=== PATIENT | male | born 2000 | race Caucasian/White ===

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

== ENCOUNTER 2021-06-26 09:49 | Emergency (ER) | payer OTHER | END 2021-06-26 12:21 | disposition home or self-care (01) | LOC: ED 09:49 | DX: R07.9 Chest pain, unspecified (principal); R42 Dizziness and giddiness; R00.2 Palpitations ==

== ENCOUNTER → 2021-08-17 | Outpatient (CLI) | payer OTHER ==
[2021-08-17 08:27] LABS: BASO % 0.5 % (0.0-1.0); EOS # 0.2 10*3/uL (0.0-0.4); HEMATOCRIT 45.8 % (42.0-52.0); LYMPH # 2.1 10*3/uL (1.3-4.4); LYMPH % 31.2 % (27.0-41.0); MEAN CELL VOLUME 84.7 fl (80.0-94.0); MEAN CORPUSCULAR HGB 28.1 pg (27.0-31.0); MEAN CORPUSCULAR HGB CONC 33.2 g/dl (33.0-37.0); MEAN PLATELET VOLUME 10.6 fl (9.6-12.3); MONO # 0.6 10*3/uL (0.1-1.0); MONO % 8.9 % (3.0-9.0); NEUT # 3.7 10*3/uL (2.3-7.9); NEUT % 56.2 % (47.0-73.0); PLATELET COUNT AUTOMATED 204 10*3/uL (130-400); RED BLOOD COUNT 5.41 10*6/uL (4.50-5.90); WHITE BLOOD COUNT 6.6 10*3/uL (4.8-10.8)
[2021-08-17 08:50] LABS: ALKALINE PHOSPHATASE 99 U/L (45-117); BUN 20 mg/dl (7-24); CHLORIDE 106 mmol/L (98-107); CHOLESTEROL 130 mg/dL (<200); CREATININE 0.83 mg/dL (0.70-1.30); LDL CHOLESTEROL 77 mg/dL (9-159); POTASSIUM 3.8 mmol/L (3.5-5.1); SGOT/AST 18 IU/L (3-35); SGPT/ALT 37 U/L (12-78); SODIUM 139 mmol/L (136-145); T3 UPTAKE 32 % (31-39); THYROXINE (T4) TOTAL 8.8 ug/dl (4.5-12.1); TRIGLYCERIDES 62 mg/dl (<150)
== END | disposition home or self-care (01) ==
LOC: LAB 08:07
PROVIDERS: ATTEND Pediatrics
DX: D64.9 Anemia, unspecified (principal); R53.83 Other fatigue; T78.40XA Allergy, unspecified, initial encounter; E56.9 Vitamin deficiency, unspecified; X58.XXXA Exposure to other specified factors, initial encounter

== ENCOUNTER → 2021-12-29 | Outpatient (CLI) | payer OTHER | END | disposition home or self-care (01) | LOC: RAD 14:48 | PROVIDERS: ATTEND Pediatrics | DX: M54.50 Low back pain, unspecified (principal) ==

== ENCOUNTER 2022-01-08 17:05 | Emergency (ER) | payer OTHER ==
[~2022-01-08] VITALS: Ht 172.7 cm; Wt 99.8 kg
[2022-01-08] MEDS ORDERED: ACETAMINOPHEN500 M4 PO (17:20)
[2022-01-08] MEDS ORDERED: GOOD NEIGHBOR L10 MG PO (17:20)
== END 2022-01-08 19:47 | disposition home or self-care (01) ==
LOC: ED 17:05
DX: S93.402A Sprain of unspecified ligament of left ankle, initial encounter (principal); Z79.899 Other long term (current) drug therapy; W17.2XXA Fall into hole, initial encounter; Y93.89 Activity, other specified; Y92.89 Other specified places as the place of occurrence of the external cause; Y99.8 Other external cause status

== ENCOUNTER 2022-01-21 17:14 | Emergency (ER) | payer OTHER ==
[~2022-01-21] VITALS: Wt 99.8 kg
[~2022-01-21 17:14] MED LIST changes: +ACETAMINOPHEN500 M4 PO; +GOOD NEIGHBOR L10 MG PO
[2022-01-21] MEDS ORDERED: ZITHROMAX250 MG PO (20:03)
== END 2022-01-21 20:05 | disposition home or self-care (01) ==
LOC: ED 17:14
DX: J18.9 Pneumonia, unspecified organism (principal)

== ENCOUNTER 2022-11-22 15:20 | Emergency (ER) | payer OTHER ==
[~2022-11-22] VITALS: Wt 104.3 kg
[~2022-11-22 15:20] MED LIST changes: +ZITHROMAX250 MG PO
[2022-11-22] MEDS ORDERED: CYCLOBENZAPRINE10 MG PO (16:42)
[2022-11-22] MEDS ORDERED: MELOXICAM15 MG PO (16:42)
== END 2022-11-22 17:20 | disposition home or self-care (01) ==
LOC: ED 15:20
DX: R07.89 Other chest pain (principal); J45.909 Unspecified asthma, uncomplicated

== ENCOUNTER 2023-03-26 12:25 | Emergency (ER) | payer OTHER ==
[~2023-03-26] VITALS: Ht 177.8 cm; Wt 99.8 kg
[~2023-03-26 12:25] MED LIST changes: +CYCLOBENZAPRINE10 MG PO; +MELOXICAM15 MG PO
== END 2023-03-26 15:07 | disposition home or self-care (01) ==
LOC: ED 12:25
DX: S93.402A Sprain of unspecified ligament of left ankle, initial encounter (principal); Z79.2 Long term (current) use of antibiotics; Z79.899 Other long term (current) drug therapy; X50.1XXA Overexertion from prolonged static or awkward postures, initial encounter; Y93.89 Activity, other specified; Y92.830 Public park as the place of occurrence of the external cause; Y99.8 Other external cause status

== ENCOUNTER → 2023-04-14 | Outpatient (CLI) | payer SELFPAY | END | disposition home or self-care (01) | LOC: ORTHO 14:02 | PROVIDERS: ATTEND Orthopaedic Surgery | DX: M25.572 Pain in left ankle and joints of left foot (principal); M79.89 Other specified soft tissue disorders ==

== ENCOUNTER 2023-05-25 05:22 | Emergency (ER) | payer BC ==
[~2023-05-25] VITALS: Ht 175.2 cm; Wt 99.8 kg
== END 2023-05-25 07:50 | disposition home or self-care (01) ==
LOC: ED 05:22
DX: S43.401A Unspecified sprain of right shoulder joint, initial encounter (principal); F90.9 Attention-deficit hyperactivity disorder, unspecified type; J45.909 Unspecified asthma, uncomplicated; X50.0XXA Overexertion from strenuous movement or load, initial encounter; Y93.89 Activity, other specified; Y92.89 Other specified places as the place of occurrence of the external cause; Y99.0 Civilian activity done for income or pay

== ENCOUNTER 2023-11-09 10:47 | Emergency (ER) | payer OTHER ==
[~2023-11-09] VITALS: Ht 170.1 cm; Wt 104.3 kg
[2023-11-09] MEDS ORDERED: IBUPROFEN 800 MG TAB PO ONE (11:30)
[2023-11-09] MEDS ORDERED: CYCLOBENZAPRINE10 MG PO (13:18)
== END 2023-11-09 13:21 | disposition home or self-care (01) ==
LOC: ED 10:47
DX: S33.5XXA Sprain of ligaments of lumbar spine, initial encounter (principal); F90.9 Attention-deficit hyperactivity disorder, unspecified type; J45.909 Unspecified asthma, uncomplicated; X50.0XXA Overexertion from strenuous movement or load, initial encounter; Y93.89 Activity, other specified; Y92.89 Other specified places as the place of occurrence of the external cause; Y99.0 Civilian activity done for income or pay

== ENCOUNTER 2024-01-19 12:05 | Emergency (ER) | payer SELFPAY ==
[~2024-01-19] VITALS: Wt 108.9 kg
[2024-01-19] MEDS ORDERED: SODIUM CHLORIDE 0.9% 1,000 ML IV ONE (13:05)
[2024-01-19] MEDS ORDERED: Ondansetron Hydrochloride 4 MG/2 ML VIAL IV ONE (13:05)
[2024-01-19 13:18] LABS: BASO % 0.3 % (0.0-1.0); EOS # 0.1 10*3/uL (0.0-0.4); EOS % 1.6 % (1.0-4.0); LYMPH % 33.4 % (27.0-41.0); MEAN CELL VOLUME 86.2 fl (80.0-94.0); MEAN CORPUSCULAR HGB 28.1 pg (27.0-31.0); MEAN CORPUSCULAR HGB CONC 32.6 g/dl (33.0-37.0); MEAN PLATELET VOLUME 10.3 fl (9.6-12.3); MONO # 0.6 10*3/uL (0.1-1.0); MONO % 10.3 % (3.0-9.0); NEUT # 3.3 10*3/uL (2.3-7.9); NEUT % 54.2 % (47.0-73.0); PLATELET COUNT AUTOMATED 171 10*3/uL (130-400); RED BLOOD COUNT 5.45 10*6/uL (4.50-5.90); RED CELL DISTRI WIDTH 12.1 % (0-14.5); WHITE BLOOD COUNT 6.1 10*3/uL (4.8-10.8)
[2024-01-19 13:42] LABS: ALKALINE PHOSPHATASE 89 U/L (46-116); BUN 11 mg/dl (9-23); CHLORIDE 103 mmol/L (98-107); POTASSIUM 4.4 mmol/L (3.4-5.1); SGPT/ALT 28 U/L (5-49); TOTAL PROTEIN 7.5 gm/dL (6.0-8.0)
[2024-01-19] MEDS ORDERED: ONDANSETRON4 MG SL (14:28)
== END 2024-01-19 14:44 | disposition home or self-care (01) ==
LOC: ED 12:05
PROVIDERS: Internal Medicine
DX: K52.9 Noninfective gastroenteritis and colitis, unspecified (principal); R11.2 Nausea with vomiting, unspecified; Z79.899 Other long term (current) drug therapy